=== PATIENT | female | born 1940 | race Caucasian/White ===

== ENCOUNTER 2016-10-17 01:08 | Outpatient (CLI) | payer MEDICARE, OTHER | END 2016-10-17 01:09 | disposition critical access hospital (66) | LOC: EMS 01:08 | PROVIDERS: ATTEND Surgery | DX: R09.89 Other specified symptoms and signs involving the circulatory and respiratory systems (principal) | CPT/HCPCS: A0425; A0427 ==

== ENCOUNTER 2016-10-17 01:23 | Emergency (ER) | payer MEDICARE, OTHER ==
--- NOTE | 2016-10-17 01:37 | ED Physician Documentation ---
PD HPI CHEST PAIN - Stated complaint Stated Complaint: AFIB - Chief complaint Chief Complaint: Cardiac - History obtained from History obtained from: Patient, EMS - History of Present Illness Timing - onset: How many hours ago (4) Timing - onset during: Rest Timing - duration: Hours (4) Timing - details: Abrupt onset Pain level max: 2 Pain level now: 2 Quality: Tightness Location: Substernal Radiation: No: Jaw, Neck, Back, Abdominal, Left upper extremity, Right upper extremity Improved by: Nothing Worsened by: No: Exertion, Inspiration, Eating, Movement, Palpation, Position Associated symptoms: Shortness of air (mild), Palpitations. No: Diaphoresis, Nausea, Vomiting, Feeling faint / dizzy, General Weakness, Cough Similar symptoms before: Diagnosis (typical of her afib) Recently seen: Not recently seen Review of Systems Constitutional: denies: Fever, Chills Respiratory: denies: Cough GI: denies: Nausea, Vomiting, Diarrhea Skin: denies: Rash Musculoskeletal: denies: Neck pain, Back pain Neurologic: denies: Focal weakness, Numbness, Headache PD PAST MEDICAL HISTORY - Past Medical History Cardiovascular: Congestive heart failure, Hypertension, Atrial fibrillation Respiratory: Asthma, Shortness of breath Neuro: Headache/migraine, Head injury Endocrine/Autoimmune: Type 1 diabetes GI: Chronic diarrhea, Chronic constipation, Pancreatitis, Cirrhosis, Other : Frequency, Other HEENT: Other Psych: Depression, Anxiety Musculoskeletal: Rheumatoid arthritis, Chronic back pain Derm: Psoriasis - Past Surgical History Past Surgical History: Yes General: Cholecystectomy, Appendectomy, Gastric surgery Ortho: Knee replacement, Other /[employer]CH[employer]ICIAN: Endometrial ablation, Hysterectomy, Oophrectomy HEENT: Cataracts - Present Medications Home Medications: Ambulatory Orders Medication Instructions Recorded Confirmed Losartan [Cozaar] 50 mg PO DAILY 10/19/12 10/17/16 Metoprolol Tartrate 50 mg PO BID 10/19/12 10/17/16 Paroxetine HCl [Paxil] 20 mg PO DAILY 10/19/12 10/17/16 Levothyroxine [Synthroid] 88 mcg PO QDAC 12/08/13 10/17/16 Insulin Lispro [Humalog] 84 unit SQ DAILY 01/27/14 10/17/16 Rivaroxaban [Xarelto] 20 mg PO DAILY 01/27/14 10/17/16 Alprazolam 0.25 mg PO BID 11/27/14 10/17/16 Dofetilide [Tikosyn] 500 mcg PO BID 11/27/14 10/17/16 diltiaZEM CD [Cardizem Cd] 120 mg PO DAILY 11/27/14 10/17/16 traMADol [Ultram] 50 mg PO BID 11/27/14 10/17/16 - Allergies Allergies/Adverse Reactions: Allergies Allergy/AdvReac Type Severity Reaction Status Date / Time iodine Allergy Severe Respiratory Verified 10/17/16 01:32 Penicillins AdvReac Severe Respiratory Verified 10/17/16 01:32 - Social History Does the pt smoke?: No Smoking Status: Never smoker Does the pt drink ETOH?: Yes Does the pt have substance abuse?: No - POLST Patient has POLST: Yes PD ED PE NORMAL - Vitals Vital signs reviewed: Yes - General General: Alert and oriented X 3, No acute distress, Well developed/nourished - HEENT HEENT: PERRL, Moist mucous membranes - Neck Neck: Supple, no meningeal sign - Cardiac Cardiac: Other (irregular) - Respiratory Respiratory: No respiratory distress, Clear bilaterally - Abdomen Abdomen: Normal bowel sounds, Soft, Non tender, Non distended - Derm Derm: Warm and dry, No rash - Extremities Extremities: No edema, No calf tenderness / cord - Neuro Neuro: Alert and oriented X 3 - Psych Psych: Normal mood, Normal affect Results - Vitals Vitals: Vital Signs - 24 hr 10/17/16 10/17/16 10/17/16 01:25 01:37 02:55 Temperature 36.7 C Heart Rate 99 91 Respiratory 16 16 Rate Blood Pressure 127/60 128/70 Blood Pressure 121/60 [Left] Blood Pressure 125/77 [Right] O2 Saturation 97 95 10/17/16 04:08 Temperature Heart Rate 70 Respiratory 16 Rate Blood Pressure 136/96 H Blood Pressure [Left] Blood Pressure [Right] O2 Saturation 96 Oxygen O2 Source Room air - EKG (time done) 0129 Rate: Rate (enter#) (105) Rhythm: Atrial fibrillation (with RVR) [place]: Normal QRS: Normal Ischemia: Non specific changes - Labs Labs: Laboratory Tests 10/17/16 10/17/16 10/17/16 02:35 02:35 02:35 WBC 8.7 RBC 4.27 Hgb 12.3 Hct 37.8 MCV 88.6 MCH 28.8 MCHC 32.5 RDW 15.9 H Plt Count 187 MPV 10.8 Neut # 5.3 Lymph # 2.1 [place] # 0.8 Eos # 0.4 Baso # 0.1 Absolute Nucleated RBC 0.00 Nucleated RBCs 0.0 Sodium 137 Potassium 4.3 Chloride 104 Carbon Dioxide 25 Anion Gap 8.0 BUN 21 H Creatinine 0.8 Estimated GFR (MDRD) 70 L Glucose 267 H Calcium 8.5 Total Bilirubin 0.4 AST 18 ALT 17 Alkaline Phosphatase 97 Troponin I < 0.04 Total Protein 6.5 L Albumin 3.6 Globulin 2.9 Albumin/Globulin Ratio 1.2 Lipase 17 L 10/17/16 03:30 WBC RBC Hgb Hct MCV MCH MCHC RDW Plt Count MPV Neut # Lymph # [place] # Eos # Baso # Absolute Nucleated RBC Nucleated RBCs Sodium Potassium Chloride Carbon Dioxide Anion Gap BUN Creatinine Estimated GFR (MDRD) Glucose Calcium Total Bilirubin AST ALT Alkaline Phosphatase Troponin I 0.04 Total Protein Albumin Globulin Albumin/Globulin Ratio Lipase - Rads (name of study) cxr Radiology: Prelim report reviewed, EMP read contemporaneously, See rad report ( Mild cardiomegaly without overt heart failure. ) PD MEDICAL DECISION MAKING - ED course Complexity details: reviewed results, re-evaluated patient, considered differential (No ST elevation OK, no aortic dissection, no PE, no tension pneumothorax, no aortic aneurysm), d/w patient ED course: Patient is a 75-year-old female who presents to the emergency department with atrial fibrillation today. She states she is in and out of atrial fibrillation multiple times a day, but tonight it lasted longer than usual. The slight chest pain is typical for her with this. No acute findings on EKG. Negative troponin 2. No acute findings on chest x-ray. She spontaneously converted to normal sinus rhythm and her symptoms resolved. She would like to go home at this time. Patient counseled regarding signs and symptoms for which I believe and urgent re-evaluation would be necessary. Patient with good understanding of and agreement to plan and is comfortable going home at this time This document was made in part using voice recognition software. While efforts are made to proofread this document, sound alike and grammatical errors may occur. Departure - Departure Disposition: 01 Home, Self Care Clinical Impression: Atrial fibrillation Qualifiers: Atrial fibrillation type: paroxysmal Qualified Code(s): I48.0 - Paroxysmal atrial fibrillation Chest pain Qualifiers: Chest pain type: unspecified Qualified Code(s): R07.9 - Chest pain, unspecified Condition: Good Instructions: ED Chest Pain Atypical Unkn Cause, ED Afib Follow-Up: your,doctor in 2 days. [Other] Comments: Return if you worsen. Continue your medications at home. Discharge Date/Time: 10/17/16 04:27
[2016-10-17 02:46] LABS: BASOPHILS # (AUTO) 0.1 10^3/uL (0.0-0.1); BASOPHILS % (AUTO) 1.2 %; EOSINOPHILS # (AUTO) 0.4 10^3/uL (0.0-0.7); EOSINOPHILS % (AUTO) 4.2 %; HCT - HEMATOCRIT 37.8 % (37.0-47.0); HGB - HEMOGLOBIN 12.3 g/dL (12.0-16.0); LYMPHOCYTES # (AUTO) 2.1 10^3/uL (1.5-3.5); LYMPHOCYTES % (AUTO) 23.8 %; MEAN CORPUSCULAR HEMOGLOBIN 28.8 pg (27.0-31.0); MEAN CORPUSCULAR HGB CONC 32.5 g/dL (32.0-36.0); MEAN CORPUSCULAR VOLUME 88.6 fL (81.0-99.0); MEAN PLATELET VOLUME 10.8 fL (7.9-10.8); MONOCYTES # (AUTO) 0.8 10^3/uL (0.0-1.0); MONOCYTES % (AUTO) 9.8 %; NEUTROPHILS # (AUTO) 5.3 10^3/uL (1.5-6.6); RED BLOOD COUNT 4.27 10^6/uL (4.20-5.40); RED CELL DISTRIBUTION WIDTH 15.9 % (12.0-15.0); UNCORRECTED WHITE BLOOD COUNT 8.7 x10^3/uL; WHITE BLOOD COUNT 8.7 x10^3/uL (4.8-10.8)
[2016-10-17 02:55] LABS: ALBUMIN/GLOBULIN RATIO 1.2 (1.0-2.2); BILIRUBIN,TOTAL 0.4 mg/dL (0.2-1.0); CALCIUM 8.5 mg/dL (8.5-10.3); CREATININE 0.8 mg/dL (0.4-1.0); POTASSIUM 4.3 mmol/L (3.5-5.0); TOTAL PROTEIN 6.5 g/dL (6.7-8.2)
--- NOTE | 2016-10-17 03:42 | XRAY Preliminary Report ---
Exam: XR Chest 1 View IMPRESSION: Mild cardiomegaly without overt heart failure. [facility] SITE ID: [id number]
--- NOTE | 2016-10-17 03:45 | XRAY Report ---
EXAM: CHEST RADIOGRAPHY EXAM DATE: 10/17/2016 03:17 AM. CLINICAL HISTORY: Chest pain. COMPARISON: 12/09/2013, CT 12/05/2013. TECHNIQUE: 1 view. FINDINGS: Lungs/Pleura: No focal pneumonia or edema evident. No gross pneumothorax or pleural effusion. Mediastinum: Mild cardiomegaly. Stable aortic contour. Other: Left pacer noted. IMPRESSION: Mild cardiomegaly without overt heart failure. [facility] Referring Provider Line: [phone] SITE ID: [id number]
[2016-10-17 04:11] VITALS: BP 136/96
== END 2016-10-17 04:27 | disposition home or self-care (01) ==
LOC: EDUNIT# → ED 01:23
DX: I48.0 Paroxysmal atrial fibrillation (principal); I45.81 Long QT syndrome; I49.3 Ventricular premature depolarization; I10 Essential (primary) hypertension; E10.9 Type 1 diabetes mellitus without complications; Z96.659 Presence of unspecified artificial knee joint
CPT/HCPCS: 36415; 71010; 80053; 83690; 84484; 85025; 93005; 99284

== ENCOUNTER 2021-06-26 10:37 | Outpatient (CLI) | payer MEDICARE ==
[2021-06-26 12:36] LABS: BASOPHILS # (AUTO) 0.1 10^3/uL (0.0-0.1); BASOPHILS % (AUTO) 1.1 %; EOSINOPHILS # (AUTO) 0.3 10^3/uL (0.0-0.7); EOSINOPHILS % (AUTO) 3.2 %; HCT - HEMATOCRIT 39.5 % (37.0-47.0); LYMPHOCYTES # (AUTO) 1.4 10^3/uL (1.5-3.5); LYMPHOCYTES % (AUTO) 18.2 %; MEAN CORPUSCULAR HEMOGLOBIN 27.2 pg (27.0-31.0); MEAN CORPUSCULAR HGB CONC 30.4 g/dL (32.0-36.0); MEAN CORPUSCULAR VOLUME 89.6 fL (81.0-99.0); MEAN PLATELET VOLUME 13.9 fL (7.9-10.8); MONOCYTES # (AUTO) 0.8 10^3/uL (0.0-1.0); MONOCYTES % (AUTO) 10.3 %; NEUTROPHILS # (AUTO) 5.3 10^3/uL (1.5-6.6); NEUTROPHILS % (AUTO) 66.8 %; PLT - PLATELET COUNT 191 10^3/uL (130-450); RED BLOOD COUNT 4.41 10^6/uL (4.20-5.40); RED CELL DISTRIBUTION WIDTH 15.6 % (12.0-15.0); WHITE BLOOD COUNT 7.9 x10^3/uL (4.8-10.8)
[2021-06-26 12:46] LABS: ALBUMIN/GLOBULIN RATIO 1.4 (1.0-2.2); ALKALINE PHOSPHATASE 101 IU/L (42-121); ALT ALANINE AMINOTRANSFERASE 36 IU/L (10-60); AST ASPARTATE AMINOTRANSFERASE 33 IU/L (10-42); BILIRUBIN,TOTAL 0.3 mg/dL (0.2-1.0); BUN - BLOOD UREA NITROGEN 22 mg/dL (6-20); CALCIUM 8.8 mg/dL (8.5-10.3); CARBON DIOXIDE - CO2 23 mmol/L (21-32); CHLORIDE 109 mmol/L (101-111); CHOLESTEROL 194 mg/dL; GFR - MDRD 53 (>89); GLUCOSE 125 mg/dL (70-100); HDL CHOLESTEROL 49 mg/dL; LDL CHOLESTEROL,CALCULATED 129 mg/dL; LDL/HDL RATIO 2.6 (<4.4); POTASSIUM 4.4 mmol/L (3.5-5.0); SODIUM 140 mmol/L (135-145); TOTAL PROTEIN 6.8 g/dL (6.7-8.2); TRIGLYCERIDES 82 mg/dL; VLDL CHOLESTEROL 16 mg/dL
[2021-06-26 12:58] LABS: THYROID STIMULATING HORMONE 3.54 uIU/mL (0.34-5.60)
[2021-06-26 12:59] LABS: FREE T3 2.11 pg/mL (2.5-3.9)
[2021-06-26 13:00] LABS: FREE T4 (FREE THYROXINE) 1.14 ng/dL (0.58-1.64)
[2021-06-26 13:01] LABS: CREATININE,URINE 92.7 mg/dL; MICROALBUM/CREATININE RATIO,UR 32.4 ug/mg (<30.0)
[2021-06-26 13:28] LABS: ESTIMATED AVERAGE GLUCOSE 189 mg/dL (70-100); HEMOGLOBIN A1c% 8.2 % (4.27-6.07)
== END 2021-06-26 10:38 | disposition home or self-care (01) ==
LOC: LAB.N 10:37
PROVIDERS: ATTEND Family Medicine
DX: I10 Essential (primary) hypertension (principal); E11.9 Type 2 diabetes mellitus without complications; I25.10 Atherosclerotic heart disease of native coronary artery without angina pectoris; E78.5 Hyperlipidemia, unspecified; F32.A Depression, unspecified; I48.91 Unspecified atrial fibrillation; E03.9 Hypothyroidism, unspecified
CPT/HCPCS: 36415; 80053; 80061; 82043; 82570; 83036; 83721; 84439; 84443; 84481; 85025

== ENCOUNTER 2021-11-18 09:59 | Outpatient (CLI) | payer MEDICARE ==
[2021-11-18 11:57] LABS: BASOPHILS # (AUTO) 0.1 10^3/uL (0.0-0.1); BASOPHILS % (AUTO) 1.3 %; EOSINOPHILS # (AUTO) 0.2 10^3/uL (0.0-0.7); EOSINOPHILS % (AUTO) 3.4 %; HCT - HEMATOCRIT 39.8 % (37.0-47.0); HGB - HEMOGLOBIN 12.4 g/dL (12.0-16.0); LYMPHOCYTES # (AUTO) 1.6 10^3/uL (1.5-3.5); LYMPHOCYTES % (AUTO) 26.2 %; MEAN CORPUSCULAR HEMOGLOBIN 27.1 pg (27.0-31.0); MEAN CORPUSCULAR HGB CONC 31.2 g/dL (32.0-36.0); MEAN CORPUSCULAR VOLUME 86.9 fL (81.0-99.0); MEAN PLATELET VOLUME 12.6 fL (7.9-10.8); MONOCYTES # (AUTO) 0.7 10^3/uL (0.0-1.0); MONOCYTES % (AUTO) 11.4 %; NEUTROPHILS # (AUTO) 3.6 10^3/uL (1.5-6.6); NEUTROPHILS % (AUTO) 57.5 %; PLT - PLATELET COUNT 213 10^3/uL (130-450); RED BLOOD COUNT 4.58 10^6/uL (4.20-5.40); RED CELL DISTRIBUTION WIDTH 17.1 % (12.0-15.0); WHITE BLOOD COUNT 6.2 x10^3/uL (4.8-10.8)
[2021-11-18 12:34] LABS: ALBUMIN/GLOBULIN RATIO 1.5 (1.0-2.2); ALKALINE PHOSPHATASE 88 IU/L (42-121); ALT ALANINE AMINOTRANSFERASE 15 IU/L (10-60); AST ASPARTATE AMINOTRANSFERASE 23 IU/L (10-42); BILIRUBIN,TOTAL 0.4 mg/dL (0.2-1.0); BUN - BLOOD UREA NITROGEN 21 mg/dL (6-20); CARBON DIOXIDE - CO2 28 mmol/L (21-32); CHLORIDE 107 mmol/L (101-111); CHOL/HDL RATIO 3.9 (<4.4); CHOLESTEROL 192 mg/dL; GFR - MDRD 53 (>89); GLUCOSE 81 mg/dL (70-100); HDL CHOLESTEROL 49 mg/dL; LDL CHOLESTEROL,CALCULATED 127 mg/dL; LDL/HDL RATIO 2.6 (<4.4); POTASSIUM 3.6 mmol/L (3.5-5.0); SODIUM 142 mmol/L (135-145); TOTAL PROTEIN 6.7 g/dL (6.7-8.2); TRIGLYCERIDES 78 mg/dL; VLDL CHOLESTEROL 16 mg/dL
[2021-11-18 12:48] LABS: CREATININE,URINE 87.2 mg/dL; MICROALBUM/CREATININE RATIO,UR 4.6 ug/mg (<30.0); MICROALBUMIN,URINE 0.4 mg/dL (0-300.0)
[2021-11-18 13:42] LABS: ESTIMATED AVERAGE GLUCOSE 163 mg/dL (70-100); HEMOGLOBIN A1c% 7.3 % (4.27-6.07)
== END 2021-11-18 10:00 | disposition home or self-care (01) ==
LOC: LAB.N 09:59
PROVIDERS: ATTEND Nurse Practitioner
DX: E10.65 Type 1 diabetes mellitus with hyperglycemia (principal); I25.10 Atherosclerotic heart disease of native coronary artery without angina pectoris; I25.83 Coronary atherosclerosis due to lipid rich plaque; R06.00 Dyspnea, unspecified
CPT/HCPCS: 36415; 80053; 80061; 82043; 82570; 83036; 83721; 83880; 85025

== ENCOUNTER 2022-02-17 09:59 | Outpatient (CLI) | payer MEDICARE ==
[2022-02-17 13:06] LABS: ALBUMIN 3.5 g/dL (3.2-5.5); ALBUMIN/GLOBULIN RATIO 1.2 (1.0-2.2); ALKALINE PHOSPHATASE 90 IU/L (42-121); ALT ALANINE AMINOTRANSFERASE 14 IU/L (10-60); AST ASPARTATE AMINOTRANSFERASE 19 IU/L (10-42); BILIRUBIN,TOTAL < 0.2 mg/dL (0.2-1.0); BUN - BLOOD UREA NITROGEN 15 mg/dL (6-20); CALCIUM 9.1 mg/dL (8.5-10.3); CARBON DIOXIDE - CO2 24 mmol/L (21-32); CHLORIDE 113 mmol/L (101-111); CHOL/HDL RATIO 2.2 (<4.4); CHOLESTEROL 113 mg/dL; GFR - MDRD 53 (>89); GLUCOSE 134 mg/dL (70-100); HDL CHOLESTEROL 52 mg/dL; LDL CHOLESTEROL,CALCULATED 51 mg/dL; POTASSIUM 4.1 mmol/L (3.5-5.0); SODIUM 142 mmol/L (135-145); TOTAL PROTEIN 6.4 g/dL (6.7-8.2); TRIGLYCERIDES 49 mg/dL; VLDL CHOLESTEROL 10 mg/dL
== END 2022-02-17 10:00 | disposition home or self-care (01) ==
LOC: LAB.N 09:59
PROVIDERS: ATTEND Internal Medicine Cardiovascular Disease
DX: I25.10 Atherosclerotic heart disease of native coronary artery without angina pectoris (principal); I25.83 Coronary atherosclerosis due to lipid rich plaque
CPT/HCPCS: 36415; 80053; 80061; 83721

== ENCOUNTER 2022-05-15 12:39 | Outpatient (CLI) | payer MEDICARE ==
[2022-05-15 17:59] LABS: POTASSIUM 4.1 mmol/L (3.5-5.0)
[2022-05-15 18:00] LABS: CALCIUM 9.1 mg/dL (8.5-10.3); CREATININE 1.1 mg/dL (0.4-1.0)
[2022-05-15 20:34] LABS: ESTIMATED AVERAGE GLUCOSE 212 mg/dL (70-100)
== END 2022-05-15 12:40 | disposition home or self-care (01) ==
LOC: LAB.N 12:39
PROVIDERS: ATTEND Family Medicine
DX: E11.621 Type 2 diabetes mellitus with foot ulcer (principal); I25.10 Atherosclerotic heart disease of native coronary artery without angina pectoris; L97.501 Non-pressure chronic ulcer of other part of unspecified foot limited to breakdown of skin
CPT/HCPCS: 36415; 80048; 83036

== ENCOUNTER 2022-06-19 13:13 | Outpatient (CLI) | payer MEDICARE ==
--- NOTE | 2022-06-19 17:06 | Ultrasound Report ---
PROCEDURE: Duplex Lwr Ext Arterial Bilat INDICATIONS: PRESSURE ULCER TECHNIQUE: Color and pulse Doppler interrogation was performed of both lower extremity arterial systems, with im age documentation. COMPARISON: None FINDINGS: Right lower extremity: Common femoral artery: 107 cm/sec, with triphasic flow. Deep femoral artery: 78 cm/sec, with biphasic flow. Proximal superficial femoral artery: 65 cm/sec, with triphasic flow. Mid superficial femoral artery: 80 cm/sec, with triphasic flow. Distal superficial femoral artery: 42 cm/sec, with triphasic flow. Popliteal artery: 30 cm/sec, with biphasic flow. Posterior tibial artery: 17 cm/sec, with monophasic flow. Anterior tibial artery/dorsalis pedis: 189 cm/sec, with monophasic flow. Pleitez-scale imaging description: Atheromatous calcifications are present throughout the right lower e xtremity arteries. A focal hemodynamically significant stenosis is present within the proximal aspect of the right posterior tibial artery. Elevated velocities within the anterior tibial artery suggest an upstream focal stenosis. Left lower extremity: Common femoral artery: 99 cm/sec, with triphasic flow. Deep femoral artery: 78 cm/sec, with triphasic flow. Proximal superficial femoral artery: 63 cm/sec, with triphasic flow. Mid superficial femoral artery: 104 cm/sec, with triphasic flow. Distal superficial femoral artery: 48 cm/sec, with triphasic flow. Popliteal artery: 36 cm/sec, with triphasic flow. Posterior tibial artery: 41 cm/sec, with triphasic flow. Anterior tibial artery/dorsalis pedis: 82 cm/sec, with monophasic flow. Pleitez-scale imaging description: Atheromatous calcifications are present throughout the left lower ex tremity arteries. Monophasic waveforms within the infrageniculate arteries raising the suspicion for a hemodynamically significant stenosis. IMPRESSION: 1. Hemodynamically significant stenosis within the right posterior tibial artery. 2. Sonographic findings suspicious for hemodynamically significant stenosis within the right anterior tibial artery. 3. Sonographic findings suspicious for hemodynamically significant stenosis within the distal left po pliteal artery. Reviewed by: Lary Killian MD on 06/19/2022 5:05 PM PST Approved by: Lary Killian MD on 06/19/2022 5:05 PM PST Station ID: [id number]
== END 2022-06-19 13:14 | disposition home or self-care (01) ==
LOC: DI 13:13
PROVIDERS: ATTEND Family Medicine
DX: E11.621 Type 2 diabetes mellitus with foot ulcer (principal); I70.201 Unspecified atherosclerosis of native arteries of extremities, right leg
CPT/HCPCS: 93925

== ENCOUNTER 2022-07-01 12:18 | Outpatient (CLI) | payer MEDICARE | END 2022-07-01 12:19 | disposition home or self-care (01) | LOC: LAB 12:18 | PROVIDERS: ATTEND Family Medicine | DX: I73.9 Peripheral vascular disease, unspecified (principal); L98.499 Non-pressure chronic ulcer of skin of other sites with unspecified severity | CPT/HCPCS: 36415; 82565 ==

== ENCOUNTER 2022-10-04 16:27 | Emergency (ER) | payer MEDICARE ==
[2022-10-04 16:37] VITALS: BP 133/69
--- NOTE | 2022-10-04 16:40 | ED Physician Documentation ---
PD HPI LOWER EXT INJURY - Stated complaint Stated Complaint: RT ANKLE INJ - Chief complaint Chief Complaint: Ext Problem - History obtained from History obtained from: Patient - History of Present Illness PD HPI LOW EXT INJURY LOCATION: Right, Ankle Type of injury: Twist (inversion) Where injury occurred: Home Timing - onset: Last night Timing - details: Abrupt onset, Still present Worsened by: Moving, Palpating Associated symptoms: Swelling. No: Weakness, Numbness Recently seen: Not recently seen Review of Systems Skin: denies: Abrasion (s), Laceration (s) Neurologic: denies: Focal weakness, Numbness PD PAST MEDICAL HISTORY - Past Medical History Cardiovascular: Congestive heart failure, Hypertension, Atrial fibrillation Respiratory: Asthma, Shortness of breath Endocrine/Autoimmune: Type 1 diabetes GI: Chronic diarrhea, Chronic constipation, Pancreatitis, Cirrhosis, Other : Frequency, Other HEENT: Other Psych: Depression, Anxiety Musculoskeletal: Rheumatoid arthritis, Chronic back pain Derm: Psoriasis - Past Surgical History Past Surgical History: Yes General: Cholecystectomy, Appendectomy, Gastric surgery Ortho: Knee replacement, Other /LANGUAGE ASST: Endometrial ablation, Hysterectomy, Oophrectomy HEENT: Cataracts - Present Medications Home Medications: Ambulatory Orders Medication Instructions Recorded Confirmed Losartan [Cozaar] 50 mg PO DAILY 10/19/12 10/17/16 Metoprolol Tartrate 50 mg PO BID 10/19/12 10/17/16 PARoxetine HCL [Paxil] 20 mg PO DAILY 10/19/12 10/17/16 Levothyroxine [Synthroid] 88 mcg PO QDAC 12/08/13 10/17/16 Insulin Lispro [Humalog] 84 unit SQ DAILY 01/27/14 10/17/16 Dofetilide [Tikosyn] 500 mcg PO BID 11/27/14 10/17/16 traMADol [Ultram] 50 mg PO BID 11/27/14 10/17/16 Apixaban [Eliquis] 5 mg PO DAILY 10/04/22 10/04/22 Furosemide [Lasix] 40 mg PO DAILY 10/04/22 10/04/22 Gabapentin [Gralise] 300 mg PO 10/04/22 HYDROcod/ACETAM 5/325 [Arley 5/325] 1 ea PO Q6H PRN #14 tablet 10/04/22 Liothyronine [Cytomel] 5 mcg PO DAILY 10/04/22 10/04/22 Lisinopril [Zestril] 10 mg PO DAILY 10/04/22 10/04/22 QUEtiapine [SEROquel] 50 mg PO DAILY 10/04/22 10/04/22 Rosuvastatin Calcium 20 mg PO DAILY 10/04/22 10/04/22 Sertraline [Zoloft] 50 mg PO DAILY 10/04/22 10/04/22 Spironolactone [Aldactone] 12.5 mg PO DAILY 10/04/22 10/04/22 - Allergies Allergies/Adverse Reactions: Allergies Allergy/AdvReac Type Severity Reaction Status Date / Time iodine Allergy Severe Respiratory Verified 10/04/22 16:34 Penicillins AdvReac Severe Respiratory Verified 10/04/22 16:34 - Social History Does the pt smoke?: No Smoking Status: Never smoker Does the pt drink ETOH?: Yes Does the pt have substance abuse?: No - POLST Patient has POLST: Yes PD ED PE NORMAL - Vitals Vital signs reviewed: Yes - General General: Alert and oriented X 3, No acute distress, Well developed/nourished - Derm Derm: Normal color, Warm and dry - Extremities Extremities: Other (right ankle tender with some swelling anterolateral of malleolus but also some just below the lateral malleolus. mild effusion. ) - Neuro Neuro: Alert and oriented X 3, No motor deficit, No sensory deficit, Normal speech Results - Vitals Vitals: Vital Signs - 24 hr 10/04/22 16:31 Temperature 36.4 C L Heart Rate 73 Respiratory 16 Rate Blood Pressure 133/69 H O2 Saturation 100 Oxygen O2 Source Room air - Rads (name of study) right ankle Relevant Findings:: Prelim report reviewed, EMP independent interpretation of test (no fractures), See rad report PD Medical Decision Making - ED course Complexity details: reviewed results, considered differential (ankle sprain. Xray without fracture. Aircast and splint given. She has walker at home and does not feel she can do crutches. She is on DOAC, so not to use NSAIDs. Can give tylenol and add pain meds short term if needded. ), d/w patient Departure - Departure Disposition: 01 Home, Self Care Clinical Impression: Ankle sprain Qualifiers: Encounter type: initial encounter Involved ligament of ankle: anterior talofibular ligament Laterality: right Qualified Code(s): S93.491A - Sprain of other ligament of right ankle, initial encounter Condition: Stable Record reviewed to determine appropriate education?: Yes Instructions: ED Sprain Ankle Prescriptions: HYDROcod/ACETAM 5/325 [Arley 5/325] 1 ea PO Q6H PRN #14 tablet PRN Reason: Pain Comments: It does look like you are on a blood thinner so I would suggest not using NSAIDs/anti-inflammatories. Use Tylenol every 4-6 hours as needed for pain or hydrocodone/acetaminophen if needed for worse pain. I sent prescription to [facility] pharmacy. Your x-ray does not show any obvious fractures. Use the ankle brace when up and around for the next 1 to 2 weeks to help with the ankle sprain. Recheck if not better in that timeframe. I am prescribing a short course of narcotic pain medication for you. These are potentially dangerous and addictive medications that should be used carefully. These medications may constipate you. Take an [id number] stool softener such as docusate twice daily with plenty of water while taking these medications. If you go 24 hours without a bowel movement, take [id number] MiraLAX, per package instructions. Do not drink or drive while taking these medications. If you received narcotic or sedating medications while in the emergency department do not drive for 24 hours. Store this medication in a safe, secure place and out of reach of children. It is a violation of federal law to give or sell this medication to another person or to use in a manner other than prescribed. The ED will not refill narcotic prescriptions, including prescriptions lost or stolen. You can dispose of unwanted medications at the [facility]'s office or at several pharmacies such as [facility]. Discharge Date/Time: 10/04/22 17:54
[2022-10-04] MEDS ORDERED: HYDROcod/ACET 5/325 Prepack 4 PO STA (17:27)
--- NOTE | 2022-10-04 18:10 | XRAY Report ---
PROCEDURE: Ankle 3 View RT INDICATIONS: ankle inversion with pain TECHNIQUE: 3 views of the ankle were acquired. COMPARISON: None. FINDINGS: Bones: No fractures or dislocations. Ankle mortise is normally aligned. No suspicious bony lesions . Soft tissues: No tibiotalar joint effusion. Achilles tendon appears normal. Mild soft tissue tissue swelling. Small vessel atherosclerotic vascular calcification IMPRESSION: Soft tissue swelling without fracture or foreign body. Reviewed by: William Noriega MD on 10/04/2022 5:08 PM MAHI Approved by: William Noriega MD on 10/04/2022 5:08 PM AKDAVIDE Station ID: [id number]
== END 2022-10-04 17:54 | disposition home or self-care (01) ==
LOC: ED 16:27
DX: S93.491A Sprain of other ligament of right ankle, initial encounter (principal); X50.1XXA Overexertion from prolonged static or awkward postures, initial encounter; Y92.009 Unspecified place in unspecified non-institutional (private) residence as the place of occurrence of the external cause; E10.9 Type 1 diabetes mellitus without complications; Z79.4 Long term (current) use of insulin; Z79.01 Long term (current) use of anticoagulants
CPT/HCPCS: 99283; 99284

== ENCOUNTER 2022-10-13 09:22 | Outpatient (CLI) | payer MEDICARE ==
[2022-10-13 12:25] LABS: CREATININE 1.1 mg/dL (0.4-1.0); POTASSIUM 4.6 mmol/L (3.5-5.0)
[2022-10-13 13:07] LABS: ESTIMATED AVERAGE GLUCOSE 151 mg/dL (70-100); HEMOGLOBIN A1c% 6.9 % (4.27-6.07)
== END 2022-10-13 09:23 | disposition home or self-care (01) ==
LOC: LAB.N 09:22
PROVIDERS: ATTEND Family Medicine
DX: I73.9 Peripheral vascular disease, unspecified (principal); E11.621 Type 2 diabetes mellitus with foot ulcer; L97.501 Non-pressure chronic ulcer of other part of unspecified foot limited to breakdown of skin; Z79.4 Long term (current) use of insulin; Z96.41 Presence of insulin pump (external) (internal)
CPT/HCPCS: 36415; 80048; 83036